=== PATIENT | female | born 2000 | race American Indian/Alaskan Native ===

== ENCOUNTER 2021-05-27 15:48 | Emergency (ER) | payer SELFPAY ==
--- NOTE | 2021-05-27 17:55 | Emergency Department Report ---
ED Female HPI - General Chief complaint: Urogenital-Female Stated complaint: TAMPON REMOVAL Time Seen by Provider: 05/27/21 17:21 Source: patient Mode of arrival: Ambulatory Limitations: No Limitations - History of Present Illness Initial comments: 20-year-old -Greek female presents to the emergency room stating she believes she has a tampon stuck in her vaginal area since last night. Patient reports she is currently on her menstrual period and started on 05/24/2021. Patient denies any pelvic pain but does report discomfort in her vaginal vault. MD Complaint: other -: Last night Location: other (Vaginal) Severity scale (0 -10): 3 Consistency: constant Improves with: none Are you Now?: No Last Menstrual Period: 05/24/21 EDC: 02/28/22 Associated Symptoms: vaginal discharge ED Review of Systems ROS: Stated complaint: TAMPON REMOVAL Other details as noted in HPI Comment: All other systems reviewed and negative ED Past Medical Hx - Past Medical History Previous Medical History?: No - Surgical History Past Surgical History?: No - Social History Smoking Status: Current Every Day Smoker Substance Use Type: Marijuana ED Physical Exam - General Limitations: No Limitations General appearance: alert, in no apparent distress - Head Head exam: Present: atraumatic, normocephalic - Eye Eye exam: Present: normal appearance - ENT ENT exam: Present: normal external ear exam - Neck Neck exam: Present: normal inspection, full ROM - Respiratory Respiratory exam: Absent: accessory muscle use - Cardiovascular Cardiovascular Exam: Present: regular rate - GI/Abdominal GI/Abdominal exam: Present: soft. Absent: distended, tenderness - Speculum exam: Present: vaginal bleeding Bi-manual exam: Present: other (Not able to appreciate foreign body). Absent: cervical motion tendernes, adnexal tenderness, adnexal mass - Extremities Exam Extremities exam: Present: normal inspection - Back Exam Back exam: Present: normal inspection - Neurological Exam Neurological exam: Present: alert, oriented X3, normal gait - Psychiatric Psychiatric exam: Present: normal affect, normal mood - Skin Skin exam: Present: warm, dry, intact, normal color. Absent: rash ED Course Vital Signs 05/27/21 16:46 Temperature 98.9 F Pulse Rate 68 Respiratory 18 Rate Blood Pressure 127/79 O2 Sat by Pulse 99 Oximetry ED Medical Decision Making - Medical Decision Making 20-year-old -Greek female presents to the emergency room stating she believes she has a tampon stuck in her vaginal area since last night. Patient reports she is currently on her menstrual period and started on 05/24/2021. Patient denies any pelvic pain but does report discomfort in her vaginal vault. exam not able to appreciate foreign body. Chaperoned by Sheyla BLOOMhealthcare management attestation.: If time is entered above; I have spent that time in minutes in the direct care of this critically ill patient, excluding procedure time. ED Disposition Clinical Impression: FB vulva/vagina Disposition: TO HOME OR SELFCARE Is pt being admited?: No Does the pt Need Aspirin: No Condition: Stable Additional Instructions: Not able to appreciate tampon in vaginal vault. Recommend for you to follow-up with [facility] if you start to have any pain purulent vaginal discharge fever pelvic pain. Referrals: [facility] [Provider Group] - 3-5 Days [facility] [Provider Group] - 3-5 Days
== END 2021-05-28 17:30 | disposition home or self-care (01) ==
LOC: ED 15:48
CPT/HCPCS: 99281; 99283